=== PATIENT | female | born 1990 | race Caucasian/White ===

== ENCOUNTER → 2016-10-10 | Outpatient (CLI) | payer BC | END | disposition home or self-care (01) | LOC: CDC 10:49 | DX: I49.9 Cardiac arrhythmia, unspecified (principal); R94.31 Abnormal electrocardiogram [ECG] [EKG]; O09.90 Supervision of high risk pregnancy, unspecified, unspecified trimester | CPT/HCPCS: 93000 ==

== ENCOUNTER 2016-10-23 14:49 | Outpatient (CLI) | payer BC ==
[~2016-10-23] VITALS: Ht 170.2 cm; Wt 111.0 kg
[2016-10-23 15:00] VITALS: BP 130/74
[2016-10-23] MEDS ORDERED: PRENATAL TABLE1 EAC3 PO (15:11)
[2016-10-23 16:40] VITALS: BP 124/75
== END 2016-10-23 17:05 | disposition short-term general hospital (02) ==
LOC: LDRP-OP → 2WEST 14:53 → LDRP-OP 03-16 11:38
DX: O34.32 Maternal care for cervical incompetence, second trimester (principal); Z3A.23 23 weeks gestation of pregnancy
CPT/HCPCS: 59025; G0378; J0702; J3475; J7120